=== PATIENT | male | born 1995 | race Caucasian/White ===

== ENCOUNTER 2017-02-15 09:45 | Emergency (ER) | payer MEDICAID, OTHER ==
[~2017-02-15] VITALS: Ht 180.3 cm; Wt 90.9 kg
[2017-02-15 11:16] VITALS: BP 128/79
== END 2017-02-15 11:24 | disposition home or self-care (01) ==
LOC: EMS 09:47
DX: J02.8 Acute pharyngitis due to other specified organisms (principal); B97.89 Other viral agents as the cause of diseases classified elsewhere
CPT/HCPCS: 99281; 99283

== ENCOUNTER 2017-09-04 11:48 | Emergency (ER) | payer OTHER ==
[~2017-09-04] VITALS: Ht 180.3 cm; Wt 77.3 kg
[2017-09-04 14:39] VITALS: BP 137/79
[2017-09-04] MEDS ORDERED: HYDROCODONE/ACETAMINOPHEN 5-325 MG TABLET PO ONE (15:45)
[2017-09-04] MEDS ORDERED: KETOROLAC TROMETHAMINE 60 MG/2 ML VIAL IM ONE (15:45)
== END 2017-09-04 18:18 | disposition home or self-care (01) ==
LOC: EMS 11:53
DX: S93.601A Unspecified sprain of right foot, initial encounter (principal); M10.9 Gout, unspecified; X58.XXXA Exposure to other specified factors, initial encounter; Y93.89 Activity, other specified; Y92.89 Other specified places as the place of occurrence of the external cause; Y99.8 Other external cause status
CPT/HCPCS: 29515; 36415; 73630; 84550; 96372; 99285; J1885